=== PATIENT | male | born 1960 | race Caucasian/White ===

== ENCOUNTER 2022-12-30 17:21 | Inpatient (IN) | payer MEDICARE ==
[~2022-12-30] VITALS: Ht 175.3 cm; Wt 70.5 kg
[2022-12-30] MEDS ORDERED: MORPHINE SULFATE 4 MG/ML CPJ (NOT FOR IM USE) IV ONE (18:00)
[2022-12-30] MEDS ORDERED: DIPHENHYDRAMINE 50MG/ML VIAL IV ONE (19:00)
[2022-12-30 19:07] LABS: BASOPHILS % 0.2 % (0.0-2.0); EOSINOPHILS % 1.2 % (0.0-5.0); HEMATOCRIT. 43.8 % (42.0-52.0); HEMOGLOBIN. 15.2 g/dL (14.0-18.0); LYMPHOCYTES % 21.4 % (20.0-50.0); MEAN CORPUSCULAR HEMOGLOBIN 33.6 pg (28.0-32.0); MEAN CORPUSCULAR HGB CONC 34.7 g/dL (31.0-37.0); MEAN CORPUSCULAR VOLUME 96.8 fL (80.0-94.0); MEAN PLATELET VOLUME 8.2 fl (7.4-10.4); MONOCYTES % 8.3 % (2.0-8.0); NEUTROPHILS % 68.9 % (40.0-76.0); PLATELET 220 x1000/uL (130-400); RED BLOOD CELL COUNT 4.53 mill/uL (4.7-6.1); RED CELL DISTRIBUTION WIDTH 13.2 % (11.6-14.6); WHITE BLOOD COUNT 6.4 x1000/uL (4.5-11.0)
[2022-12-30 19:19] LABS: CHLORIDE 100 mEq/L (98-107); INDEX HEMOLYSI 1 (1-3); INDEX ICTERIC 2 (1-4); INDEX LIPEMIC 1 (1-3); POTASSIUM 3.9 mEq/L (3.5-5.1); SODIUM 133 mEq/L (136-145)
[2022-12-30 19:23] LABS: ALBUMIN 3.7 g/dL (3.4-5.0); CARBON DIOXIDE 26 mEq/L (21-32); GLUCOSE 135 mg/dL (70-105); UREA NITROGEN BLOOD 12 mg/dL (7-21)
[2022-12-30 19:31] LABS: ALANINE AMINOTRANSFERASE 371 IU/L (13-61); ASPARTATE AMINOTRANSFERASE 366 IU/L (15-37); BILIRUBIN TOTAL 2.4 mg/dL (0.1-1.0); CREATININE 0.7 mg/dL (0.6-1.3); NT PRO B-TYPE NATRIURETIC PEP 48 pg/mL (5-125); PROTEIN TOTAL 7.2 g/dL (6.0-8.3); TROPONIN I HIGH SENSITIVITY 4 ng/L (<78)
[2022-12-30 20:45] LABS: TROPONIN I HIGH SENSITIVITY 5 ng/L (<78)
[2022-12-30] MEDS ORDERED: ASPIRIN 325MG TABLET PO ONE (22:00)
[2022-12-30] MEDS ORDERED: IOHEXOL-350 100 ML BOTTLE ONE (22:15)
[2022-12-30] MEDS: HYDROCODONE/ACETAMINOPHEN 10/325MG TABLET PO PRN (23:44)
[2022-12-30] MEDS ORDERED: NALOXONE HCL 0.4MG/ML VIAL IV PRN (23:45)
[2022-12-31] VITALS (7 sets, daily range): BP systolic 114–156; BP diastolic 69–93; PULSE 65–78; RESP 16–20; TEMP 96.8–97.8
[2022-12-31] MEDS ORDERED: ONDANSETRON HCL 4MG/2ML INJ IV PRN (00:45)
[2022-12-31] MEDS ORDERED: GABA-532 MT (01:12)
[2022-12-31] MEDS ORDERED: TAMS-11 MT (01:12)
[2022-12-31] MEDS ORDERED: MORPHINE SULFATE 2 MG/ML CPJ (NOT FOR IM USE) IV NR (01:15)
[2022-12-31 03:20] LABS: *AMPHETAMINES SCREEN URINE NEGATIVE (NEGATIVE); *BARBITURATES SCREEN URINE NEGATIVE (NEGATIVE); *BENZODIAZEPINES SCREEN URINE NEGATIVE (NEGATIVE); *COCAINE SCREEN URINE NEGATIVE (NEGATIVE); CANNABINOID URINE SCREEN NEGATIVE (NEGATIVE); ECSTASY MDMA SCREEN URINE NEGATIVE (NEGATIVE); METHADONE URINE SCREEN NEGATIVE (NEGATIVE); OPIATES URINE SCREEN PRESUMTIVE POSITIVE (NEGATIVE); PHENCYCLIDINE URINE SCREEN NEGATIVE (NEGATIVE)
[2022-12-31] MEDS: GABAPENTIN 300MG CAPSULE PO SCH ×3 (06:13→21:24)
[2022-12-31] MEDS ORDERED: PANTOPRAZOLE 40MG DR TABLET PO SCH (06:30)
[2022-12-31] MEDS: AMLODIPINE 10MG TABLET PO SCH (09:31)
[2022-12-31] MEDS: PANTOPRAZOLE 40MG DR TABLET PO SCH (09:32)
[2022-12-31] MEDS: ENOXAPARIN 40MG/0.4ML SYR SUBCUT SCH (09:33)
[2022-12-31] MEDS: HYDROCODONE/ACETAMINOPHEN 10/325MG TABLET PO PRN ×2 (09:37→22:57)
[2022-12-31] MEDS ORDERED: PNEUMOCOCCAL 23-VAL P-SAC VAC 0.5 ML IM ONE (11:00)
[2022-12-31] MEDS ORDERED: INFLUENZA VACCINE 05/PF 0.5 ML SYRINGE IM ONE (11:00)
[2022-12-31] MEDS: NITROGLYCERIN 0.4MG TABLET SL SL PRN ×2 (12:56→23:52)
[2022-12-31] MEDS: METOPROLOL TARTRATE 25MG TABLET PO SCH (21:25)
[2023-01-01] VITALS: BP 107/66; PULSE 54; RESP 20; TEMP 97.6
[2023-01-01] MEDS: MORPHINE SULFATE 2 MG/ML CPJ (NOT FOR IM USE) IV PRN ×2 (03:05→14:43)
[2023-01-01 04:00] VITALS: BP 139/73; PULSE 72; RESP 20; TEMP 98.1
[2023-01-01] MEDS: GABAPENTIN 300MG CAPSULE PO SCH ×3 (05:57→22:14)
[2023-01-01 07:55] VITALS: BP 122/71; PULSE 63; RESP 20; TEMP 98.3
[2023-01-01] MEDS: PANTOPRAZOLE 40MG DR TABLET PO SCH (09:04)
[2023-01-01] MEDS: ASPIRIN 81MG TABLET PO SCH (09:05)
[2023-01-01] MEDS: HYDROCODONE/ACETAMINOPHEN 10/325MG TABLET PO PRN (09:05)
[2023-01-01] MEDS: AMLODIPINE 10MG TABLET PO SCH (09:05)
[2023-01-01] MEDS: ENOXAPARIN 40MG/0.4ML SYR SUBCUT SCH (09:06)
[2023-01-01] MEDS: METOPROLOL TARTRATE 25MG TABLET PO SCH ×2 (09:06→22:14)
[2023-01-01 12:00] VITALS: BP 153/86; PULSE 71; RESP 18; TEMP 97.9
[2023-01-01 16:00] VITALS: BP 131/76; PULSE 66; RESP 18; TEMP 97.3
[2023-01-01 20:00] VITALS: BP 113/65; PULSE 66; RESP 20; TEMP 98.1
[2023-01-02 04:00] VITALS: BP 138/78; PULSE 77; RESP 20; TEMP 98.9
[2023-01-02] MEDS: GABAPENTIN 300MG CAPSULE PO SCH ×2 (06:00→14:49)
[2023-01-02] MEDS: FAMOTIDINE 20MG TABLET PO SCH ×2 (07:07→16:55)
[2023-01-02 08:00] VITALS: BP 111/58; PULSE 69; RESP 70; TEMP 97.5
[2023-01-02] MEDS: METOPROLOL TARTRATE 25MG TABLET PO SCH (08:59)
[2023-01-02] MEDS: AMLODIPINE 10MG TABLET PO SCH (09:00)
[2023-01-02] MEDS: ENOXAPARIN 40MG/0.4ML SYR SUBCUT SCH (09:00)
[2023-01-02] MEDS: ASPIRIN 81MG TABLET PO SCH (09:04)
[2023-01-02] MEDS ORDERED: LIDOCAINE HCL 1% 20ML VIAL (Pyxis) INJ ONE (10:42)
[2023-01-02] MEDS ORDERED: IODIXANOL 320MG/ML 100 ML BOTTLE IV ONE (10:42)
[2023-01-02] MEDS ORDERED: FENTANYL CITRATE/PF 50MCG/ML 2ML VIAL ONE (10:43)
[2023-01-02] MEDS ORDERED: MIDAZOLAM HCL 2 MG/2 ML VIAL ONE (10:43)
[2023-01-02] MEDS ORDERED: ACETAMINOPHEN 325MG TABLET PO PRN (12:15)
[2023-01-02] MEDS ORDERED: ATROPINE SULFATE 1MG/10ML SYR IV PRN (12:15)
[2023-01-02 16:00] VITALS: BP 113/68; PULSE 43; RESP 18; TEMP 98.5
[2023-01-02 17:33] VITALS: BP 113/68; PULSE 53; TEMP 98.5; O2SAT 97
[2023-01-03] MEDS ORDERED: ISOSORBIDE MONONITRATE 30MG TABLET SR 24HR PO SCH (09:00)
== END 2023-01-02 18:25 | disposition home or self-care (01) | DRG 287 ==
LOC: ER 17:21 → MICUSO 21:42 → 7WST 12-31 00:41
PROVIDERS: ADMIT Internal Medicine; ATTEND Internal Medicine
PROC: 4A023N7 Measurement of Cardiac Sampling and Pressure, Left Heart, Percutaneous Approach (ICD-10-PCS; principal; 2023-01-02)
PROC: B211YZZ Fluoroscopy of Multiple Coronary Arteries using Other Contrast (ICD-10-PCS; 2023-01-02)
PROC: B41FYZZ Fluoroscopy of Right Lower Extremity Arteries using Other Contrast (ICD-10-PCS; 2023-01-02)
DX: I25.110 Atherosclerotic heart disease of native coronary artery with unstable angina pectoris (principal); R07.89 Other chest pain; I16.0 Hypertensive urgency; R74.01 Elevation of levels of liver transaminase levels; K76.0 Fatty (change of) liver, not elsewhere classified; Z20.822 Contact with and (suspected) exposure to COVID-19; K57.90 Diverticulosis of intestine, part unspecified, without perforation or abscess without bleeding; I10 Essential (primary) hypertension; N40.0 Benign prostatic hyperplasia without lower urinary tract symptoms; I51.7 Cardiomegaly
CPT/HCPCS: 36415; 71045; 71275; 74174; 80053; 80305; 83880; 84484; 85025; 87426; 90686; 90732; 93005; 93306; 99285; J1200; J1644; J1650; J2250; J2270; J3010; J3490; Q9967

== ENCOUNTER 2023-07-28 19:07 | Inpatient (IN) | payer MEDICARE ==
[~2023-07-28] VITALS: Ht 175.3 cm; Wt 87.1 kg
[~2023-07-28 19:07] MED LIST: GABA800T97 PO; LISI10TA26 PO; MECL-299 PO; METH-773 PO; NAPR-681 PO; OXYB-52 PO; TAMS-11 PO; VITA-384 PO; VITAMIN D PO
[2023-07-28 20:00] VITALS: BP 140/77; PULSE 87; RESP 18; TEMP 99.5
[2023-07-28] MEDS ORDERED: CLONIDINE 0.1MG TABLET PO PRN (21:00)
[2023-07-28] MEDS ORDERED: CEFAZOLIN 1000MG PREMIX 50 ML IV SCH (21:00)
[2023-07-28] MEDS ORDERED: DOCUSATE SODIUM 100MG CAPSULE PO PRN (21:00)
[2023-07-28] MEDS ORDERED: NICARDIPINE 100 MG in SODIUM CHLORIDE 0.9% 60 ML IV PRN (21:00)
[2023-07-28] MEDS ORDERED: NALOXONE HCL 1MG/ML 2ML VIAL IV PRN (21:30)
[2023-07-28] MEDS ORDERED: NA PHOS,M-B/NA PHOS,DI-BA ENEMA 118ML PR PRN (21:30)
[2023-07-28] MEDS ORDERED: ONDANSETRON HCL 4MG/2ML INJ IV PRN (21:30)
[2023-07-28] MEDS ORDERED: GUAIFENESIN 200MG 200 MG TABLET PO PRN (21:30)
[2023-07-28] MEDS: GABAPENTIN 400MG CAPSULE PO SCH (21:46)
[2023-07-28] MEDS: HYDROCODONE/ACETAMINOPHEN 5/325MG TABLET PO PRN (21:48)
[2023-07-28 22:00] VITALS: BP 140/77; PULSE 87; RESP 18; TEMP 97.5
[2023-07-28] MEDS: CEFAZOLIN 1000MG PREMIX 50ML IV NR (22:02)
[2023-07-28] MEDS: LACTATED RINGERS 1,000 ML IV ONE (23:19)
[2023-07-29] VITALS: PULSE 87; RESP 18; TEMP 97.7
[2023-07-29] MEDS ORDERED: IPRATROPIUM/ALBUTEROL 0.5-3(2.5)MG/3ML NEB HHN PRN
[2023-07-29] MEDS ORDERED: IPRATROPIUM/ALBUTEROL 0.5-3(2.5)MG/3ML NEB HHN SCH
[2023-07-29 07:35] LABS: BASOPHILS % 0.2 % (0.0-2.0); EOSINOPHILS % 1.6 % (0.0-5.0); HEMATOCRIT. 43.6 % (42.0-52.0); HEMOGLOBIN. 14.9 g/dL (14.0-18.0); LYMPHOCYTES % 30.2 % (20.0-50.0); MEAN CORPUSCULAR HEMOGLOBIN 34.1 pg (28.0-32.0); MEAN CORPUSCULAR HGB CONC 34.2 g/dL (31.0-37.0); MEAN PLATELET VOLUME 8.6 fl (7.4-10.4); MONOCYTES % 9.4 % (2.0-8.0); NEUTROPHILS % 58.6 % (40.0-76.0); PLATELET 161 x1000/uL (130-400); RED BLOOD CELL COUNT 4.36 mill/uL (4.7-6.1); RED CELL DISTRIBUTION WIDTH 13.6 % (11.6-14.6); WHITE BLOOD COUNT 7.9 x1000/uL (4.5-11.0)
[2023-07-29 07:37] LABS: CHLORIDE 103 mEq/L (98-107); POTASSIUM 4.2 mEq/L (3.5-5.1); SODIUM 136 mEq/L (136-145)
[2023-07-29 07:40] LABS: CALCIUM 8.9 mg/dL (8.7-10.4); CARBON DIOXIDE 27 mEq/L (21-32)
[2023-07-29 07:45] LABS: ALANINE AMINOTRANSFERASE 14 IU/L (10-49); CREATININE 0.8 mg/dL (0.6-1.3); GLUCOSE 94 mg/dL (70-105); UREA NITROGEN BLOOD 12 mg/dL (9-23)
[2023-07-29 07:47] LABS: ALBUMIN 3.7 g/dL (3.2-4.8); ASPARTATE AMINOTRANSFERASE 21 IU/L (<34); BILIRUBIN TOTAL 0.7 mg/dL (0.1-1.0); PREALBUMIN 18.5 mg/dl (10.0-40.0); PROTEIN TOTAL 6.1 g/dL (6.0-8.3)
[2023-07-29 08:00] VITALS: BP 133/82; PULSE 74; RESP 18; TEMP 98.1
[2023-07-29] MEDS: TAMSULOSIN HCL 0.4MG SR CAPSULE PO SCH (09:34)
[2023-07-29] MEDS: POLYETHYLENE GLYCOL 3350 (17GM) 1 DOSE PACK PO SCH ×2 (09:34→17:25)
[2023-07-29] MEDS: LISINOPRIL 10MG TABLET PO SCH (09:34)
[2023-07-29 12:50] LABS: BASOPHILS % 0.6 % (0.0-2.0); DIFFERENTIAL COMMENT 0; EOSINOPHILS % 2.1 % (0.0-5.0); HEMOGLOBIN. 14.7 g/dL (14.0-18.0); LYMPHOCYTES % 25.2 % (20.0-50.0); MEAN CORPUSCULAR HEMOGLOBIN 35.1 pg (28.0-32.0); MEAN CORPUSCULAR HGB CONC 35.1 g/dL (31.0-37.0); MEAN CORPUSCULAR VOLUME 100.2 fL (80.0-94.0); MEAN PLATELET VOLUME 8.1 fl (7.4-10.4); MONOCYTES % 10.5 % (2.0-8.0); NEUTROPHILS % 61.6 % (40.0-76.0); PLATELET 171 x1000/uL (130-400); RED BLOOD CELL COUNT 4.19 mill/uL (4.7-6.1); RED CELL DISTRIBUTION WIDTH 13.4 % (11.6-14.6); WHITE BLOOD COUNT 7.4 x1000/uL (4.5-11.0)
[2023-07-29 13:00] LABS: CALCIUM 8.7 mg/dL (8.7-10.4); CARBON DIOXIDE 27 mEq/L (21-32); CHLORIDE 102 mEq/L (98-107); SODIUM 137 mEq/L (136-145)
[2023-07-29 13:04] LABS: IRON 54 ug/dL (65-175)
[2023-07-29 13:05] LABS: CREATININE 0.8 mg/dL (0.6-1.3); GLUCOSE 96 mg/dL (70-105)
[2023-07-29 13:06] LABS: UREA NITROGEN BLOOD 13 mg/dL (9-23)
[2023-07-29 13:07] LABS: ALANINE AMINOTRANSFERASE 24 IU/L (10-49); ALBUMIN 3.8 g/dL (3.2-4.8); ASPARTATE AMINOTRANSFERASE 29 IU/L (<34)
[2023-07-29 13:08] LABS: BILIRUBIN TOTAL 0.7 mg/dL (0.1-1.0); PROTEIN TOTAL 6.6 g/dL (6.0-8.3); TOTAL IRON BINDING CAPACITY 196 ug/dl (250-425)
[2023-07-29 13:09] LABS: FERRITIN 115 ng/mL (22-322); THYROID STIMULATING HORMONE 2.02 uIU/mL (0.55-4.78)
[2023-07-29 13:10] LABS: FOLIC ACID (FOLATE) SERUM 12.44 ng/mL (>5.38)
[2023-07-29 13:11] LABS: VITAMIN B12 SERUM 288 pg/mL (211-911)
[2023-07-29 16:00] VITALS: BP 114/69; PULSE 68; RESP 20; TEMP 97.8
[2023-07-29] MEDS: MORPHINE SULFATE 4 MG/ML INJ (FOR IV/IM USE) IV PRN (18:03)
[2023-07-29] MEDS: ACETAMINOPHEN 325MG TABLET PO PRN (19:03)
[2023-07-29 20:00] VITALS: BP 116/74; PULSE 80; RESP 18; TEMP 98.7
[2023-07-30 08:00] VITALS: PULSE 70; RESP 21; TEMP 97.6
[2023-07-30] MEDS ORDERED: SENNOSIDES/DOCUSATE SOD 8.6/50MG TABLET PO PRN (14:00)
[2023-07-30] MEDS ORDERED: BISACODYL 10MG SUPP PR ONE (14:00)
[2023-07-30] MEDS ORDERED: BISACODYL 10MG SUPP PR PRN (14:00)
[2023-07-30] MEDS: BISACODYL 10MG SUPP PR NR (14:30)
[2023-07-30 20:00] VITALS: BP 122/76; PULSE 74; RESP 18; TEMP 97.8
[2023-07-31 08:00] VITALS: BP 121/77; PULSE 77; RESP 20; TEMP 97.1
[2023-07-31] MEDS: LACTULOSE 20G/30ML UDC PO PRN (13:49)
[2023-07-31] MEDS: ACETAMINOPHEN 325MG TABLET PO PRN (13:49)
[2023-07-31] MEDS: CYANOCOBALAMIN 1000MCG/ML VIAL IM SCH (17:42)
[2023-07-31 19:35] VITALS: BP 152/97; PULSE 84; RESP 20; TEMP 97.2
[2023-08-01 07:50] LABS: CLARITY URINE CLEAR (CLEAR); COLOR URINE YELLOW (YELLOW); GLUCOSE URINE NEGATIVE (NEGATIVE); KETONES URINE NEGATIVE (NEGATIVE); LEUKOCYTE ESTERASE URINE NEGATIVE (NEGATIVE); NITRITE URINE NEGATIVE (NEGATIVE); OCCULT BLOOD URINE NEGATIVE (NEGATIVE); PROTEIN URINE NEGATIVE (NEGATIVE)
[2023-08-01 08:00] VITALS: BP 133/67; PULSE 71; RESP 18; TEMP 97.4
[2023-08-01 08:11] LABS: PROSTATE SPECIFIC AG TOTAL 0.8 ng/mL (0.0-4.0)
[2023-08-01 08:53] LABS: WBC URINE 0-2 /hpf (0-2)
[2023-08-01 08:54] LABS: SQUAMOUS EPITHELIAL CELL URINE NONE SEEN /lpf (RARE/1+)
[2023-08-01 08:55] LABS: BACTERIA URINE NONE SEEN; RBC URINE NONE SEEN /hpf (0-2)
[2023-08-01] MEDS: ERGOCALCIFEROL 50000UNITS CAPSULE PO SCH (17:05)
[2023-08-01 20:00] VITALS: BP 137/82; PULSE 77; RESP 20; TEMP 97.8
[2023-08-02 05:54] LABS: HEMATOCRIT 42.8 % (42.0-52.0); HEMOGLOBIN 15.1 g/dL (14.0-18.0); MEAN CORPUSCULAR HEMOGLOBIN 34.8 pg (28.0-32.0); MEAN CORPUSCULAR HGB CONC 35.3 g/dL (31.0-37.0); MEAN CORPUSCULAR VOLUME 98.5 fL (80.0-94.0); PLATELET 196 x1000/uL (130-400); RED BLOOD CELL COUNT 4.35 mill/uL (4.7-6.1); RED CELL DISTRIBUTION WIDTH 13.2 % (11.6-14.6); WHITE BLOOD COUNT 6.8 x1000/uL (4.5-11.0)
[2023-08-02 06:06] LABS: CALCIUM 8.7 mg/dL (8.7-10.4); CARBON DIOXIDE 23 mEq/L (21-32); CHLORIDE 99 mEq/L (98-107); POTASSIUM 4.1 mEq/L (3.5-5.1); SODIUM 131 mEq/L (136-145)
[2023-08-02 06:11] LABS: CREATININE 0.7 mg/dL (0.6-1.3)
[2023-08-02 06:12] LABS: GLUCOSE 113 mg/dL (70-105); UREA NITROGEN BLOOD 8 mg/dL (9-23)
[2023-08-02 08:00] VITALS: BP 146/80; PULSE 77; RESP 20; TEMP 97.4
[2023-08-02] MEDS ORDERED: IPRATROPIUM/ALBUTEROL 0.5-3(2.5)MG/3ML NEB HHN PRN (10:00)
[2023-08-02 20:00] VITALS: BP 127/85; PULSE 86; RESP 19; TEMP 97.5
[2023-08-03 08:00] VITALS: BP 132/83; PULSE 81; RESP 19; TEMP 97.9
[2023-08-03] MEDS ORDERED: OXYB5TAB21 PO (13:41)
[2023-08-03] MEDS ORDERED: THIA100T88 PO (13:41)
[2023-08-03] MEDS ORDERED: METH-774 PO (13:41)
[2023-08-03] MEDS: LORATADINE 10MG TABLET PO PRN (15:42)
[2023-08-03 20:00] VITALS: BP 132/71; PULSE 76; RESP 18; TEMP 96.9
[2023-08-04 07:14] LABS: BASOPHILS % 0.4 % (0.0-2.0); EOSINOPHILS % 2.5 % (0.0-5.0); HEMATOCRIT. 39.2 % (42.0-52.0); HEMOGLOBIN. 13.9 g/dL (14.0-18.0); LYMPHOCYTES % 31.5 % (20.0-50.0); MEAN CORPUSCULAR HGB CONC 35.3 g/dL (31.0-37.0); MEAN CORPUSCULAR VOLUME 98.9 fL (80.0-94.0); MEAN PLATELET VOLUME 8.2 fl (7.4-10.4); NEUTROPHILS % 53.6 % (40.0-76.0); PLATELET 229 x1000/uL (130-400); RED BLOOD CELL COUNT 3.96 mill/uL (4.7-6.1); RED CELL DISTRIBUTION WIDTH 13.1 % (11.6-14.6); WHITE BLOOD COUNT 4.9 x1000/uL (4.5-11.0)
[2023-08-04 07:29] LABS: CHLORIDE 98 mEq/L (98-107); POTASSIUM 4.1 mEq/L (3.5-5.1); SODIUM 131 mEq/L (136-145)
[2023-08-04 07:30] LABS: CALCIUM 8.7 mg/dL (8.7-10.4); CARBON DIOXIDE 27 mEq/L (21-32)
[2023-08-04 07:35] LABS: CREATININE 0.8 mg/dL (0.6-1.3); GLUCOSE 99 mg/dL (70-105); UREA NITROGEN BLOOD 10 mg/dL (9-23)
[2023-08-04 08:00] VITALS: BP 142/80; PULSE 78; RESP 19; TEMP 97.5
[2023-08-04 08:34] VITALS: PULSE 78
[2023-08-04] MEDS: PHENOL/SODIUM PHENOLATE 1.4% SRPAY 177ML MM NR (09:34)
== END 2023-08-04 14:36 | disposition left against medical advice (07) | DRG 551 ==
PROVIDERS: ADMIT Physical Medicine & Rehabilitation Spinal Cord Injury Medicine; ATTEND Internal Medicine
DX: M48.02 Spinal stenosis, cervical region (principal); G82.50 Quadriplegia, unspecified; E87.1 Hypo-osmolality and hyponatremia; M54.12 Radiculopathy, cervical region; G89.4 Chronic pain syndrome; I10 Essential (primary) hypertension; D64.9 Anemia, unspecified; N40.0 Benign prostatic hyperplasia without lower urinary tract symptoms; R53.81 Other malaise; R26.9 Unspecified abnormalities of gait and mobility; Z53.29 Procedure and treatment not carried out because of patient's decision for other reasons; D72.829 Elevated white blood cell count, unspecified; E53.8 Deficiency of other specified B group vitamins; E55.9 Vitamin D deficiency, unspecified; E61.1 Iron deficiency; E66.9 Obesity, unspecified; G90.8 Other disorders of autonomic nervous system; R73.03 Prediabetes; M54.9 Dorsalgia, unspecified; Z68.28 Body mass index [BMI] 28.0-28.9, adult; Z91.81 History of falling; Z82.49 Family history of ischemic heart disease and other diseases of the circulatory system
CPT/HCPCS: 36415; 80048; 80053; 81003; 82306; 82607; 82728; 82746; 83036; 83540; 83550; 84134; 84153; 84443; 85025; 85027; 92610; 97110; 97116; 97162; 97167; 97530; 97535; J0690; J2270; J3420; L0172